=== PATIENT | female | born 1930 | race Asian ===

== ENCOUNTER → 2017-04-05 | Outpatient (CLI) | payer OTHER ==
[~2017-04-05] MED LIST: ACET-48 PO; ASPI-1093 PO; CALC-776 PO; CARV3 PO; DONE5TAB PO; ESCI10TA PO; FISH1CAP63 PO; LISI-660 PO; MEMA14CA PO; MOME17N NASAL; PANT40TA25 PO; PRAM0.258 PO; SIMV20TA6 PO; VITA1TAB PO
== END | disposition home or self-care (01) ==
LOC: RADPV 11:11
PROVIDERS: ATTEND Internal Medicine
DX: J98.11 Atelectasis (principal); I70.0 Atherosclerosis of aorta; Z95.0 Presence of cardiac pacemaker
CPT/HCPCS: 71020

== ENCOUNTER → 2018-11-03 | Emergency (ER) | payer OTHER ==
[~2018-11-03] VITALS: Ht 167.6 cm; Wt 70.5 kg
[~2018-11-03] MED LIST changes: -ASPI-1093 PO; +ASPI-1182 PO; +CALC-26 PO; -CALC-776 PO; -DONE5TAB PO; +DONE5TAB5 PO; +MORPHINE SULFATE 2 MG/ML SYRINGE IVP ONE
[2018-11-03 13:26] VITALS: BP 142/75
== END | disposition home or self-care (01) ==
LOC: EMS 11:37
DX: M13.851 Other specified arthritis, right hip (principal); E11.9 Type 2 diabetes mellitus without complications; E78.00 Pure hypercholesterolemia, unspecified; I10 Essential (primary) hypertension; F32.9 Major depressive disorder, single episode, unspecified; F03.90 Unspecified dementia, unspecified severity, without behavioral disturbance, psychotic disturbance, mood disturbance, and anxiety; Z79.899 Other long term (current) drug therapy; Z79.82 Long term (current) use of aspirin
CPT/HCPCS: 72170; 73552; J2270